=== PATIENT | female | born 1970 | race Caucasian/White ===

== ENCOUNTER → 2017-07-14 | Outpatient (CLI) | payer OTHER ==
[2017-04-19 11:55] VITALS: BMI 42.9
[~2017-07-14] MED LIST: CETI-459 PO; CIT20 PO; ESTR0.62 PO; HYDR1TAB PO; HYDR2TAB4 PO; IBUP800T37 PO; LOR7.5/325 PO
--- NOTE | 2017-07-14 16:08 | RADIOLOGY IMAGING REPORT ---
FACILITY: [facility] [place] PATIENT NAME: Cassandra Cronin : 1970 MR: [id number] V: [id number] EXAM DATE: ORDERING PHYSICIAN: EARNEST MUNOZ TECHNOLOGIST: Location: [facility] Patient: Cassandra Cronin : 1970 Visit/Account:[id number] Date of Sevice: 07/14/2017 Exam type: CERVICAL SPINE 2 OR 3 VIEW History: Neck pain Comparison: None. Findings: There is straightening of normal cervical lordosis which can be seen with muscle spasm. There is mod erate to severe disc space narrowing at C6-7 with anterior osteophytes. There is mild disc space panchito rowing at C7-T1 IMPRESSION: 1. Straightening of normal cervical lordosis which can be seen with muscle spasm Moderate to severe spondylotic changes at C6-7 and mild spondylotic changes C7-T1 Report Dictated By: Ramandeep Hairston MD at 07/14/2017 4:03 PM Report E-Signed By: Ramandeep Hairston MD at 07/14/2017 4:05 PM WSN:[email or web address]
== END ==
LOC: RAD 13:35
PROVIDERS: ATTEND Nurse Practitioner Psychiatric/Mental Health
DX: M62.838 Other muscle spasm (principal); M47.892 Other spondylosis, cervical region; M25.78 Osteophyte, vertebrae; M40.40 Postural lordosis, site unspecified
CPT/HCPCS: 72040

== ENCOUNTER → 2018-10-12 | Outpatient (CLI) | payer OTHER ==
[2017-04-19 11:55] VITALS: BMI 42.9
--- NOTE | 2018-10-14 08:20 | RADIOLOGY IMAGING REPORT ---
FACILITY: [facility] [place] PATIENT NAME: PRAFUL FULLER : [id number] MR: [id number] V: [id number] EXAM DATE: ORDERING PHYSICIAN: ANI ADKINS TECHNOLOGIST: Charleen Gonzalez PROCEDURE: BILATERAL DIGITAL SCREENING MAMMOGRAM WITH CAD ASSISTED INTERPRETATION & 3D TOMOSYNTHESIS REASON FOR STUDY: Screening FAMILY HISTORY OF BREAST CANCER: None BREAST PROCEDURES/TREATMENTS: None COMPARISON: 03/06/16, 04/15/13 VIEWS OBTAINED: Bilateral 2D & 3D full field CC & MLO projections BREAST DENSITY: There are scattered areas of fibroglandular density throughout the breasts. MAMMOGRAM FINDINGS: The parenchymal pattern has remained stable allowing for difference in mammographic technique & patient positioning. IMPRESSION: BIRADS 1: Negative. DIAGNOSTIC CATEGORY 1--NEGATIVE. RECOMMENDATIONS: ROUTINE MAMMOGRAM AND CLINICAL EVALUATION. Dictated by: Ramandeep Hairston M.D. on 10/12/2018 at 18:07 Transcribed by: PRICILA on 10/13/2018 at 7:27 Approved by: Ramandeep Hairston M.D. on 10/14/2018 at 8:19 [facility]
== END ==
LOC: MAMO 07:53
PROVIDERS: ATTEND Family Medicine
DX: Z12.31 Encounter for screening mammogram for malignant neoplasm of breast (principal)
CPT/HCPCS: 77063; 77067